=== PATIENT | female | born 1980 | race Caucasian/White ===

== ENCOUNTER 2016-11-11 18:14 | Emergency (ER) | payer MEDICAID ==
[~2016-11-11] VITALS: Ht 162.6 cm; Wt 83.5 kg
[2016-11-11 18:25] VITALS: BP 170/101
== END 2016-11-11 21:43 | disposition home or self-care (01) ==
LOC: ER 18:28
DX: S00.83XA Contusion of other part of head, initial encounter (principal); V49.49XA Driver injured in collision with other motor vehicles in traffic accident, initial encounter; Y93.89 Activity, other specified; Y99.8 Other external cause status; Y92.410 Unspecified street and highway as the place of occurrence of the external cause
CPT/HCPCS: 70486

== ENCOUNTER 2017-01-13 16:18 | Emergency (ER) | payer MEDICAID ==
[~2017-01-13] VITALS: Ht 264.2 cm; Wt 81.6 kg
[2017-01-13] MEDS ORDERED: PROMETHAZINE HCL 25 MG/ML 1ML ONE (16:29)
[2017-01-13] MEDS ORDERED: KETOROLAC TROMETH 30 MG/ML 1ML VIAL ONE (16:29)
[2017-01-13] MEDS ORDERED: KETOROLAC TROMETH 30 MG/ML 1ML VIAL IV ONE (16:45)
[2017-01-13] MEDS ORDERED: PROMETHAZINE HCL 25 MG/ML 1ML IV ONE (16:45)
[2017-01-13] MEDS ORDERED: MORPHINE SULFATE 10 MG/ML INJ 1ML SDV IV ONE (17:00)
[2017-01-13] MEDS ORDERED: SILVER SULFADIAZINE 1 % TOPICAL CREAM 50GM TOP ONE (17:30)
[2017-01-13] MEDS ORDERED: SODIUM CHLORIDE 0.9% 2,000 ML IV ONE (18:00)
[2017-01-13] MEDS ORDERED: cefTRIAXone 1GM/50ML D5W 50 ML IV ONE (19:00)
[2017-01-13 20:33] VITALS: BP 125/93
== END 2017-01-13 20:45 | disposition short-term general hospital (02) ==
LOC: EDBD 16:18 → ER 16:28
DX: T20.20XA Burn of second degree of head, face, and neck, unspecified site, initial encounter (principal); T20.27XA Burn of second degree of neck, initial encounter; T21.21XA Burn of second degree of chest wall, initial encounter; T22.112A Burn of first degree of left forearm, initial encounter; T31.10 Burns involving 10-19% of body surface with 0% to 9% third degree burns; F17.210 Nicotine dependence, cigarettes, uncomplicated; F41.9 Anxiety disorder, unspecified; X19.XXXA Contact with other heat and hot substances, initial encounter; Z88.8 Allergy status to other drugs, medicaments and biological substances; Y93.89 Activity, other specified; Y99.8 Other external cause status; Y92.090 Kitchen in other non-institutional residence as the place of occurrence of the external cause; Z98.51 Tubal ligation status
CPT/HCPCS: 96361; 96365; 96375; 99291; J0696; J1885; J2270; J2550